=== PATIENT | female | born 1940 | race Caucasian/White ===

== ENCOUNTER 2025-01-28 10:15 | Day surgery (SDC) | payer MEDICARE, OTHER, SELFPAY ==
[2025-01-28] VITALS (8 sets, daily range): BP systolic 130–173; BP diastolic 50–72
[2025-01-28 11:02] LABS: Glucose - Point of Care 116 mg/dl (70-99)
--- NOTE | 2025-01-28 13:00 | ITS.CL.PACE ---
[employer] - Pacemaker Implant
Pacemaker Implant
Procedure Report:
PACEMAKER GENERATOR CHANGE
Date of Procedure: 01/28/2025
Primary Care Provider: Flo López MD �
PROCEDURES:
1. Removal of dual chamber PPM generator at [facility]
2. Implant of new [ ] chamber PPM generator
INDICATION FOR PROCEDURE:
1. PPM generator at [facility]
2. 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
The patient was prepped and draped in sterile fashion. Lidocaine with epi was used for local anesthesia. An incision was made along the previous incision and the device and leads were carefully dissected from the pocket. Hemostasis was obtained
with electrocautery. The leads were from the device header and tested using an external analyzer. The pocket was liberally irrigated with antibiotic solution. Once testing (see below) showed adequate and stable function, the leads were
connected to the generator header and the leads and generator were placed within the pocket. The pocket was closed in the typical fashion.
EXPLANTED PPM GENERATOR:
Medtronic [id number], SN: [id number] Left Pectoral
IMPLANTED PPM GENERATOR:
Medtronic [id number], SN [id number]
RETAINED LEADS:
RA: Medtronic 5086, SN: PJ [id number]
RV: Medtronic 5086, SN: PJ [id number]
DEVICE TESTING:
Sensing: RA 2 mV, RV N/A, no escape rhythm
Capture: RA 0.5 V @ 0.4ms, RV 0.75 V @ 0.4ms
Ohms: RA 430, RV 323
FINAL PROGRAMMING
Indra Pacing: DDDR 50�130 ppm
COMPLICATIONS:
None
CONCLUSIONS:
1. Successful explant of dual chamber permanent pacemaker
2. Successful implant of total chamber permanent pacemaker
RECOMMENDATIONS:
1. In-Office wound check in 7-10 days.
Copy to: Flo López MD
== END 2025-01-28 14:10 | disposition home or self-care (01) ==
LOC: CATH 10:15
PROVIDERS: ATTENDING PHYSICIAN Internal Medicine Cardiovascular Disease; FAMILY PHYSICIAN Internal Medicine
DX: Z45.010 Encounter for checking and testing of cardiac pacemaker pulse generator [battery] (principal); I44.2 Atrioventricular block, complete; I42.9 Cardiomyopathy, unspecified; I10 Essential (primary) hypertension; E11.9 Type 2 diabetes mellitus without complications; I44.7 Left bundle-branch block, unspecified; J44.9 Chronic obstructive pulmonary disease, unspecified; Z79.4 Long term (current) use of insulin
CPT/HCPCS: 33228; 82962; C1785